=== PATIENT | male | born 1960 | race Caucasian/White ===

== ENCOUNTER 2017-12-10 07:42 | Emergency (ER) | payer SELFPAY ==
[2017-12-10] MEDS ORDERED: ONDANSETRON 4 MG INJ IV (11:02)
[2017-12-10] MEDS ORDERED: SOD CHLORIDE 0.9% 1,000 ML IV (11:02)
[2017-12-10] MEDS ORDERED: DILTIAZEM 25 MG INJ IV (11:30)
== END 2017-12-10 13:31 | disposition left against medical advice (07) ==
LOC: E/R 13:31
DX: Z53.21 Procedure and treatment not carried out due to patient leaving prior to being seen by health care provider (principal)

== ENCOUNTER 2019-02-27 10:45 | Inpatient (IN) | payer OTHER ==
[2019-02-27] MEDS: PANTOPRAZOLE IV 80 MG in SOD CHLORIDE 0.9% 100 ML IVPB ×3 (10:52→11:30)
[2019-02-27 11:12] LABS: ABNORMAL IP MESSAGE 1; HEMATOCRIT 20.5 % (42.0-52.0); MEAN CORPUSCULAR HGB CONC 30.2 g/dl (32.0-37.0); POSITIVE DIFF @See below
[2019-02-27 11:17] LABS: WHITE BLOOD COUNT 8.7 10^3/ul (4.8-10.8)
[2019-02-27 11:17] LABS: MEAN CORPUSCULAR HEMOGLOBIN 28.1 pg (29.0-33.0); MEAN CORPUSCULAR VOLUME 92.8 fl (82.0-101.0); MEAN PLATELET VOLUME 10.3 fl (7.4-10.4); PLATELET COUNT 177 10^3/UL (140-415); RED BLOOD COUNT 2.21 10^6/ul (4.70-6.10); RED CELL DISTRIBUTION WIDTH 15.2 % (11.5-14.5)
[2019-02-27] MEDS: SOD CHLORIDE 0.9% 1,000 ML IV ×2 (11:28→13:00)
[2019-02-27] MEDS: OCTREOTIDE 50 MCG in SOD CHLORIDE 0.9% 25 ML IVPB (11:29)
[2019-02-27] MEDS: ONDANSETRON 4 MG INJ IV (11:29)
[2019-02-27] MEDS: OCTREOTIDE 500 MCG in SOD CHLORIDE 0.9% 49 ML IV (11:29)
[2019-02-27] MEDS: CEFTRIAXONE 1 GM/50 ML (PMX) 50 ML IVPB (11:29)
[2019-02-27 11:30] LABS: ALANINE AMINOTRANSFERASE 14 IU/L (13-69); ALBUMIN 3.3 g/dl (3.3-4.9); ALKALINE PHOSPHATASE 70 IU/L (42-121); ANION GAP 11 (5-13); ASPARTATE AMINO TRANSFERASE 35 IU/L (15-46); BILIRUBIN,INDIRECT 1.2 mg/dl (0-1.1); BILIRUBIN,TOTAL 1.2 mg/dl (0.2-1.3); BLOOD UREA NITROGEN 22 mg/dl (7-20); CALCIUM 8.3 mg/dl (8.4-10.2); CARBON DIOXIDE 24 mmol/L (21-31); CHLORIDE 109 mmol/L (97-110); Estimated GFR > 60 mL/min (>60); GLUCOSE 179 mg/dl (70-220); SODIUM 144 mmol/L (135-144); TOTAL PROTEIN 6.3 g/dl (6.1-8.1)
[2019-02-27 11:38] LABS: ADD MAN DIFF? YES; HEMOGLOBIN 6.2 g/dl (14.0-18.0)
[2019-02-27] MEDS: SOD CHLORIDE 0.9% 0 ML IV (11:40)
[2019-02-27 11:41] LABS: TROPONIN-I < 0.012 ng/ml (0.000-0.120)
[2019-02-27 12:06] LABS: PROTIME 16.3 Sec (11.9-14.9); PT RATIO 1.3
[2019-02-27 12:07] LABS: PARTIAL THROMBOPLASTIN TIME 36.6 Sec (23.0-35.0)
[2019-02-27] MEDS ORDERED: ACETAMINOPHEN 325 MG TAB PO (13:00)
[2019-02-27] MEDS ORDERED: ACETAMINOPHEN 650 MG SUPP PR (13:00)
[2019-02-27] MEDS ORDERED: DOCUSATE SODIUM 100 MG CAP PO (13:00)
[2019-02-27] MEDS ORDERED: NACL 0.9% 3 ML SYG IV (13:00)
[2019-02-27] MEDS ORDERED: BISACODYL (EC) 5 MG TAB PO (13:00)
[2019-02-27] MEDS ORDERED: ONDANSETRON 4 MG INJ IV (13:00)
[2019-02-27 13:04] LABS: ANISOCYTOSIS 1+ (0-0); BAND NEUTROPHILS #M 0.4 10^3/ul (0.0-0.6); BAND NEUTROPHILS % (M) 5 % (0-4); GIANT THROMBO% (M) 1 % (0-0); HYPOCHROMASIA 2+ (0-0); LYMPHOCYTES #M 0.4 10^3/ul (0.8-2.9); LYMPHOCYTES % (M) 5 % (15-51); MICROCYTOSIS 1+ (0-0); MONOCYTE #M 0.3 10^3/ul (0.3-0.9); MONOCYTES % (M) 4 % (0-11); OVALOCYTES 1+ (0-0); PLATELET ESTIMATE NORMAL; POIKILOCYTOSIS 1+ (0-0); POLYCHROMASIA 3+ (0-0); SEG NEUT #M 7.5 10^3/ul (1.6-7.5); SEGMENTED NEUTROPHILS (M) % 86 % (39-77); SMUDGE%M 1 % (0-0)
[2019-02-27] MEDS ORDERED: ALBUTEROL 0.083% (NEB) 2.5 MG/3 ML AMP HHN (14:30)
[2019-02-27] MEDS ORDERED: PROPOFOL 60 ML (14:41)
[2019-02-27] MEDS: morphine 2 MG INJ IV ×2 (16:21→21:06)
[2019-02-27] MEDS: LORAZEPAM 2 MG INJ IV (16:21)
[2019-02-27 17:24] LABS: ANION GAP 6 (5-13); BLOOD UREA NITROGEN 22 mg/dl (7-20); CALCIUM 7.7 mg/dl (8.4-10.2); CARBON DIOXIDE 25 mmol/L (21-31); CHLORIDE 111 mmol/L (97-110); CREATININE 0.67 mg/dl (0.61-1.24); Estimated GFR > 60 mL/min (>60); GLUCOSE 167 mg/dl (70-220); POTASSIUM 4.8 mmol/L (3.5-5.1); SODIUM 142 mmol/L (135-144)
[2019-02-27] MEDS: OCTREOTIDE 500 MCG in DEXTROSE 5% 49 ML IV (18:03)
[2019-02-27] MEDS: MULTIVITAMINS 10 ML, THIAMINE 100 MG, FOLIC ACID 1 MG in SOD CHLORIDE 0.9% 1,000 ML IVPB (18:05)
[2019-02-27] MEDS: PANTOPRAZOLE IV 80 MG in SOD CHLORIDE 0.9% 100 ML IV (18:05)
[2019-02-27 18:14] LABS: IMMEDIATE SPIN CROSSMATCH 1 5
[2019-02-27 18:29] LABS: HEMATOCRIT 24.2 % (42.0-52.0); HEMOGLOBIN 7.5 g/dl (14.0-18.0)
[2019-02-27] MEDS ORDERED: OCTREOTIDE 500 MCG in DEXTROSE 5% 49 ML IV (21:00)
[2019-02-27 22:59] LABS: HEMATOCRIT 24.2 % (42.0-52.0); HEMOGLOBIN 7.7 g/dl (14.0-18.0)
[2019-02-28] MEDS ORDERED: LABETALOL HCL 20MG INJ IV (01:00)
[2019-02-28] MEDS: PANTOPRAZOLE IV 80 MG in SOD CHLORIDE 0.9% 100 ML IV ×3 (03:30→22:56)
[2019-02-28] MEDS: morphine 2 MG INJ IV ×4 (05:19→21:15)
[2019-02-28 06:06] LABS: ADD MAN DIFF? NO
[2019-02-28 06:33] LABS: BASOPHILS % 0.5 % (0.0-2.0); EOSINOPHILS # 0.1 10^3/ul (0.0-0.5); EOSINOPHILS % 0.9 % (0.0-7.0); HEMATOCRIT 26.2 % (42.0-52.0); HEMOGLOBIN 8.5 g/dl (14.0-18.0); LYMPHOCYTES % 17.6 % (15.0-51.0); MEAN CORPUSCULAR HEMOGLOBIN 29.3 pg (29.0-33.0); MEAN CORPUSCULAR HGB CONC 32.4 g/dl (32.0-37.0); MEAN CORPUSCULAR VOLUME 90.3 fl (82.0-101.0); MEAN PLATELET VOLUME 10.6 fl (7.4-10.4); MONOCYTE # 0.5 10^3/ul (0.3-0.9); NEUTROPHIL # 4.1 10^3/ul (1.6-7.5); NEUTROPHILS % 72.5 % (39.0-77.0); PLATELET COUNT 102 10^3/UL (140-415); RED CELL DISTRIBUTION WIDTH 15.2 % (11.5-14.5)
[2019-02-28 06:33] LABS: WHITE BLOOD COUNT 5.6 10^3/ul (4.8-10.8)
[2019-02-28] MEDS: OCTREOTIDE 500 MCG in DEXTROSE 5% 49 ML IV ×2 (07:14→22:57)
[2019-02-28 07:26] LABS: ALANINE AMINOTRANSFERASE 18 IU/L (13-69); ALBUMIN 2.8 g/dl (3.3-4.9); ALBUMIN/GLOBULIN RATIO 1.12; ALKALINE PHOSPHATASE 57 IU/L (42-121); ANION GAP 4 (5-13); ASPARTATE AMINO TRANSFERASE 41 IU/L (15-46); BILIRUBIN,INDIRECT 1.6 mg/dl (0-1.1); BILIRUBIN,TOTAL 1.6 mg/dl (0.2-1.3); BLOOD UREA NITROGEN 16 mg/dl (7-20); CALCIUM 7.8 mg/dl (8.4-10.2); CARBON DIOXIDE 27 mmol/L (21-31); CHLORIDE 109 mmol/L (97-110); CREATININE 0.73 mg/dl (0.61-1.24); Estimated GFR > 60 mL/min (>60); GLUCOSE 104 mg/dl (70-220); MAGNESIUM 1.7 mg/dl (1.7-2.5); PHOSPHORUS 2.2 mg/dl (2.5-4.9); POTASSIUM 3.6 mmol/L (3.5-5.1); SODIUM 140 mmol/L (135-144); TOTAL PROTEIN 5.3 g/dl (6.1-8.1)
[2019-02-28 07:31] LABS: THYROID STIMULATING HORMONE 0.054 MIU/L (0.465-4.680)
[2019-02-28] MEDS: HYDROCODONE/APAP (5/325) TAB PO ×3 (07:45→23:37)
[2019-02-28] MEDS: MULTIVITAMINS 10 ML, THIAMINE 100 MG, FOLIC ACID 1 MG in SOD CHLORIDE 0.9% 1,000 ML IVPB ×2 (08:37→11:06)
[2019-02-28 08:46] LABS: HEMOGLOBIN A1C 5.4 % (0-5.9)
[2019-02-28] MEDS ORDERED: MULTIVITAMINS 10 ML, THIAMINE 100 MG, FOLIC ACID 1 MG in SOD CHLORIDE 0.9% 1,000 ML IVPB (09:00)
[2019-02-28 21:51] LABS: HEMATOCRIT 24.8 % (42.0-52.0)
[2019-03-01] MEDS: HYDROCODONE/APAP (5/325) TAB PO (05:15)
[2019-03-01 05:49] LABS: ADD MAN DIFF? NO
[2019-03-01 06:16] LABS: WHITE BLOOD COUNT 4.2 10^3/ul (4.8-10.8)
[2019-03-01 06:16] LABS: ABNORMAL IP MESSAGE 1; BASOPHILS % 0.2 % (0.0-2.0); EOSINOPHILS # 0.1 10^3/ul (0.0-0.5); EOSINOPHILS % 2.9 % (0.0-7.0); HEMATOCRIT 24.8 % (42.0-52.0); HEMOGLOBIN 7.8 g/dl (14.0-18.0); LYMPHOCYTES # 0.8 10^3/ul (0.8-2.9); LYMPHOCYTES % 19.3 % (15.0-51.0); MEAN CORPUSCULAR HEMOGLOBIN 28.7 pg (29.0-33.0); MEAN CORPUSCULAR HGB CONC 31.5 g/dl (32.0-37.0); MEAN CORPUSCULAR VOLUME 91.2 fl (82.0-101.0); MEAN PLATELET VOLUME 10.6 fl (7.4-10.4); MONOCYTE # 0.4 10^3/ul (0.3-0.9); MONOCYTES % 8.8 % (0.0-11.0); NEUTROPHIL # 2.9 10^3/ul (1.6-7.5); NEUTROPHILS % 68.3 % (39.0-77.0); PLATELET COUNT 89 10^3/UL (140-415); POSITIVE DIFF @See below; RED BLOOD COUNT 2.72 10^6/ul (4.70-6.10); RED CELL DISTRIBUTION WIDTH 15.6 % (11.5-14.5)
[2019-03-01 06:43] LABS: ANION GAP 3 (5-13); BLOOD UREA NITROGEN 13 mg/dl (7-20); CALCIUM 7.6 mg/dl (8.4-10.2); CARBON DIOXIDE 26 mmol/L (21-31); CHLORIDE 110 mmol/L (97-110); CREATININE 0.75 mg/dl (0.61-1.24); Estimated GFR > 60 mL/min (>60); GLUCOSE 86 mg/dl (70-220); POTASSIUM 3.7 mmol/L (3.5-5.1); SODIUM 139 mmol/L (135-144)
[2019-03-01 06:54] LABS: FREE T4 (FREE THYROXINE) 0.77 ng/dl (0.64-1.79)
[2019-03-01 07:12] LABS: MAGNESIUM 1.8 mg/dl (1.7-2.5)
[2019-03-01 07:26] LABS: HEMATOCRIT 24.4 % (42.0-52.0); HEMOGLOBIN 7.8 g/dl (14.0-18.0)
[2019-03-01] MEDS: PANTOPRAZOLE IV 80 MG in SOD CHLORIDE 0.9% 100 ML IV (08:23)
[2019-03-01] MEDS: MULTIVITAMINS 10 ML, THIAMINE 100 MG, FOLIC ACID 1 MG in SOD CHLORIDE 0.9% 1,000 ML IVPB (08:23)
[2019-03-01 08:45] LABS: TRIIODOTHYRONINE 0.57 ng/ml (0.97-1.69)
[2019-03-01] MEDS ORDERED: D5W-0.45 NACL + KCL 10 MEQ 1,000 ML IV (09:00)
[2019-03-01] MEDS: morphine 2 MG INJ IV (09:44)
[2019-03-01] MEDS: NICOTINE (14 MG/24 HR) PATCH TRANSDERM (16:45)
[2019-03-01] MEDS: PANTOPRAZOLE 40 MG INJ IV (17:09)
[2019-03-01 21:23] LABS: HEMOGLOBIN 8.5 g/dl (14.0-18.0)
[2019-03-01] MEDS: PROPRANOLOL 10 MG TAB PO (21:44)
[2019-03-02] MEDS: HYDROCODONE/APAP (5/325) TAB PO (00:08)
[2019-03-02] MEDS: PANTOPRAZOLE 40 MG INJ IV (06:42)
[2019-03-02] MEDS: NICOTINE (14 MG/24 HR) PATCH TRANSDERM (08:22)
[2019-03-02] MEDS: PROPRANOLOL 10 MG TAB PO (08:22)
[2019-03-02] MEDS: POLYETHYLENE GLYCOL 17 GM PACKET PO (11:30)
[2019-03-02 12:45] LABS: HEMATOCRIT 30.3 % (42.0-52.0); HEMOGLOBIN 9.5 g/dl (14.0-18.0)
[2019-03-02] MEDS: MULTIVITAMINS 10 ML, THIAMINE 100 MG, FOLIC ACID 1 MG in SOD CHLORIDE 0.9% 1,000 ML IVPB (13:01)
[2019-03-02 13:47] LABS: HEPATITIS B SURFACE ANTIGEN NEGATIVE (NEGATIVE)
[2019-03-02 14:04] LABS: HEPATITIS B SURFACE ANTIBODY NEGATIVE (NEGATIVE)
[2019-03-02 14:05] LABS: HEPATITIS B CORE ANTIBODY NEGATIVE (NEGATIVE); HEPATITIS C VIRAL ANTIBODY NEGATIVE (NEGATIVE)
== END 2019-03-02 13:05 | disposition left against medical advice (07) | DRG 432 ==
LOC: E/R 10:45 → TEL 03-01 18:08 → ICU 12:15
PROVIDERS: Pediatrics
PROC: 06L38CZ Occlusion of Esophageal Vein with Extraluminal Device, Via Natural or Artificial Opening Endoscopic (ICD-10-PCS; principal; 2019-02-27 14:00)
PROC: 30233N1 Transfusion of Nonautologous Red Blood Cells into Peripheral Vein, Percutaneous Approach (ICD-10-PCS; 2019-02-27 14:00)
DX: K70.30 Alcoholic cirrhosis of liver without ascites (principal); I85.11 Secondary esophageal varices with bleeding; D62 Acute posthemorrhagic anemia; K76.6 Portal hypertension; E03.9 Hypothyroidism, unspecified; F10.20 Alcohol dependence, uncomplicated; F32.9 Major depressive disorder, single episode, unspecified; F17.200 Nicotine dependence, unspecified, uncomplicated; J44.9 Chronic obstructive pulmonary disease, unspecified
CPT/HCPCS: 36415; 36430; 71045; 76705; 80048; 80053; 83036; 83735; 84100; 84439; 84443; 84480; 84484; 85014; 85018; 85025; 85610; 85730; 86644; 86704; 86706; 86803; 86850; 86900; 86901; 86920; 87081; 87340; 93005; 96365; 96368; 96375; 96376; 99285-25

== ENCOUNTER 2019-04-20 15:02 | Day surgery (SDC) | payer OTHER ==
[2019-04-20] MEDS ORDERED: PROPOFOL 20 ML ×3 (17:18→18:38)
[2019-04-20] MEDS ORDERED: ONDANSETRON 4 MG INJ (17:18)
[2019-04-20] MEDS ORDERED: DEXAMETHASONE 4 MG/ML 5 ML INJ (17:18)
[2019-04-20] MEDS ORDERED: MIDAZOLAM 1 MG/ML 2 ML INJ (17:18)
[2019-04-20] MEDS ORDERED: SUCCINYLCHOLINE CHLORIDE 100 MG/5 ML SYG IV ×2 (17:18→18:41)
[2019-04-20] MEDS ORDERED: FENTAnyl 50 MCG/ML VIAL IV ×2 (17:30)
[2019-04-20] MEDS ORDERED: ONDANSETRON 4 MG INJ IV (17:30)
[2019-04-20] MEDS ORDERED: FENTAnyl 50 MCG/ML VIAL ×2 (17:34→19:04)
[2019-04-20] MEDS ORDERED: EPINEPHrine 1 MG/ML 30 ML INJ (17:56)
[2019-04-20] MEDS ORDERED: EPINEPHrine 10 MCG/1ml (10 ML SYG) IV (17:58)
[2019-04-20] MEDS ORDERED: EPINEPHrine 1 MG INJ (17:59)
[2019-04-20] MEDS ORDERED: LIDOCAINE 2% (SDV) 5 ML INJ (18:10)
[2019-04-20] MEDS: FENTAnyl 50 MCG/ML VIAL IV ×2 (20:08→20:25)
== END 2019-04-20 21:15 | disposition home or self-care (01) ==
LOC: SDS 15:02
DX: C32.1 Malignant neoplasm of supraglottis (principal); K14.8 Other diseases of tongue; G44.229 Chronic tension-type headache, not intractable; I85.01 Esophageal varices with bleeding
CPT/HCPCS: 31535; 88307; 88331

== ENCOUNTER 2019-04-23 05:51 | Emergency (ER) | payer OTHER ==
[2019-04-23] MEDS: ONDANSETRON 4 MG INJ IV (06:43)
[2019-04-23] MEDS: FAMOTIDINE 20 MG INJ IV (06:43)
[2019-04-23] MEDS: SOD CHLORIDE 0.9% 1,000 ML IV (06:43)
[2019-04-23 06:49] LABS: ADD MAN DIFF? NO
[2019-04-23 06:51] LABS: BASOPHILS % 0.2 % (0.0-2.0); EOSINOPHILS % 0.3 % (0.0-7.0); HEMATOCRIT 31.9 % (42.0-52.0); HEMOGLOBIN 9.5 g/dl (14.0-18.0); LYMPHOCYTES % 10.1 % (15.0-51.0); MEAN CORPUSCULAR HEMOGLOBIN 26.9 pg (29.0-33.0); MEAN CORPUSCULAR HGB CONC 29.8 g/dl (32.0-37.0); MEAN CORPUSCULAR VOLUME 90.4 fl (82.0-101.0); MEAN PLATELET VOLUME 10.8 fl (7.4-10.4); MONOCYTE # 1.1 10^3/ul (0.3-0.9); MONOCYTES % 11.1 % (0.0-11.0); NEUTROPHIL # 7.5 10^3/ul (1.6-7.5); NEUTROPHILS % 77.4 % (39.0-77.0); PLATELET COUNT 141 10^3/UL (140-415); RED BLOOD COUNT 3.53 10^6/ul (4.70-6.10); RED CELL DISTRIBUTION WIDTH 21.1 % (11.5-14.5)
[2019-04-23 06:51] LABS: WHITE BLOOD COUNT 9.7 10^3/ul (4.8-10.8)
[2019-04-23 07:09] LABS: ALANINE AMINOTRANSFERASE 22 IU/L (13-69); ALBUMIN 3.6 g/dl (3.3-4.9); ALKALINE PHOSPHATASE 82 IU/L (42-121); AMYLASE 58 U/L (11-123); ANION GAP 9 (5-13); ASPARTATE AMINO TRANSFERASE 59 IU/L (15-46); BILIRUBIN,INDIRECT 1.4 mg/dl (0-1.1); BILIRUBIN,TOTAL 1.4 mg/dl (0.2-1.3); BLOOD UREA NITROGEN 29 mg/dl (7-20); CARBON DIOXIDE 28 mmol/L (21-31); CHLORIDE 106 mmol/L (97-110); CREATININE 0.69 mg/dl (0.61-1.24); Estimated GFR > 60 mL/min (>60); GLUCOSE 141 mg/dl (70-220); LIPASE 148 U/L (23-300); POTASSIUM 4.2 mmol/L (3.5-5.1); SODIUM 143 mmol/L (135-144); TOTAL PROTEIN 6.6 g/dl (6.1-8.1)
[2019-04-23 07:11] LABS: INR 1.34; PROTIME 16.7 Sec (11.9-14.9); PT RATIO 1.3
[2019-04-23 07:12] LABS: PARTIAL THROMBOPLASTIN TIME 35.2 Sec (23.0-35.0)
[2019-04-23 07:19] LABS: TROPONIN-I < 0.012 ng/ml (0.000-0.120)
[2019-04-23] MEDS: OCTREOTIDE 50 MCG in SOD CHLORIDE 0.9% 25 ML IVPB (07:34)
[2019-04-23] MEDS: PANTOPRAZOLE IV 80 MG in SOD CHLORIDE 0.9% 100 ML IVPB (07:35)
[2019-04-23] MEDS: PANTOPRAZOLE IV 80 MG in SOD CHLORIDE 0.9% 100 ML IV (07:59)
[2019-04-23] MEDS: OCTREOTIDE 500 MCG in SOD CHLORIDE 0.9% 49 ML IV (08:00)
[2019-04-23] MEDS: LORAZEPAM 2 MG INJ IV (09:22)
[2019-04-23 10:29] LABS: AMMONIA 16 umol/l (9-30)
== END 2019-04-23 11:28 | disposition home or self-care (01) ==
LOC: E/R 05:51
DX: K92.2 Gastrointestinal hemorrhage, unspecified (principal); D64.9 Anemia, unspecified; R40.2142 Coma scale, eyes open, spontaneous, at arrival to emergency department; R40.2362 Coma scale, best motor response, obeys commands, at arrival to emergency department; R40.2252 Coma scale, best verbal response, oriented, at arrival to emergency department; R07.9 Chest pain, unspecified; Z87.891 Personal history of nicotine dependence
CPT/HCPCS: 36415; 71045; 80053; 80307; 82140; 82150; 83690; 84484; 85025; 85610; 85730; 86850; 86900; 86901; 88321; 88342; 93005; 96374; 96375; 96376; 99285-25